=== PATIENT | female | born 1985 | race Caucasian/White ===

== ENCOUNTER 2017-08-18 23:04 | Emergency (ER) | payer OTHER ==
[~2017-08-18] VITALS: Ht 162.6 cm; Wt 98.9 kg
[2017-08-19 01:17] VITALS: BP 128/88
== END 2017-08-19 01:17 | disposition home or self-care (01) ==
LOC: ED 23:04
DX: R21 Rash and other nonspecific skin eruption (principal); M79.601 Pain in right arm; M54.2 Cervicalgia
CPT/HCPCS: J1885; J7512